=== PATIENT | male | born 1970 | race Caucasian/White ===

== ENCOUNTER 2020-11-24 18:26 | Emergency (ER) | payer OTHER ==
[~2020-11-24] VITALS: Ht 193 cm; Wt 99.8 kg
[2020-11-24 18:35] VITALS: BP_SYST 165
--- NOTE | 2020-11-24 18:58 | NUR ---
Placed in bed by Ramonita Rapp
--- NOTE | 2020-11-24 19:05 | NUR ---
pt. lacerated right index finger working on his car, denies pain, EMT irrigating cut at this time, Report to Miki
--- NOTE | 2020-11-24 19:15 | NUR ---
Dr. Rome at bedside for pt eval
[2020-11-24] MEDS ORDERED: LIDOCAINE 2%, 20 ML MDV INJ ONE (20:15)
[2020-11-24] MEDS ORDERED: DIPH-TET-PERTUS Vaccine 0.5 ML VIAL (ADACEL) I.M. ONE (20:15)
--- NOTE | 2020-11-24 20:40 | NUR ---
Patient fainted while sitting in gurney. Patient placed on monitor, in trendelenburg position, and IV started. Patients blood sugar taken and was 82. notified.
--- NOTE | 2020-11-24 20:50 | NUR ---
# 18 gauge angiocath placed to left AC. Use of asceptic technique. Opsite placed over site. Blood return noted. Flushed with 10 cc of normal saline. No evidence of infiltration noted. Patient tolerated well.
[2020-11-24] MEDS ORDERED: NACL 0.9% 1,000 ML IV ONE ×2 (21:00)
--- NOTE | 2020-11-24 21:05 | NUR ---
Dr. Rome ordered 12 lead EKG stat
--- NOTE | 2020-11-24 21:15 | NUR ---
Pt's VSS no s/s of acute distress Resting on gurney
--- NOTE | 2020-11-24 21:59 | NUR ---
Dr. Rome bedside for Lac repair procedure, well tolerated
[2020-11-24] MEDS ORDERED: SULF1TAB48 PO (22:08)
[2020-11-24 22:47] LABS: BASOPHILS % (AUTO) 0.1 % (0.0-2.0); EOSINOPHILS # (AUTO) 0.1 K/uL (0.0-0.4); EOSINOPHILS % (AUTO) 0.9 % (0.0-4.0); HEMATOCRIT 39.2 % (36-54); HEMOGLOBIN 13.6 g/dL (14.0-18.0); LYMPHOCYTES # (AUTO) 1.1 K/uL (1.0-5.5); LYMPHOCYTES % (AUTO) 18.7 % (20.5-51.5); MEAN CORPUSCULAR HEMOGLOBIN 30 pg (27-31); MEAN CORPUSCULAR HGB CONC 35 % (32-36); MEAN CORPUSCULAR VOLUME 87 fL (79.0-98.0); MONOCYTES # (AUTO) 0.4 K/uL (0.0-1.0); MONOCYTES % (AUTO) 6.1 % (1.7-9.3); NEUTROPHILS # (AUTO) 4.5 K/uL (1.8-7.7); NEUTROPHILS % (AUTO) 74.2 % (40.0-70.0); PLATELET COUNT (AUTO) 178 K/uL (130-430); RED CELL DISTRIBUTION WIDTH 13.2 % (9.0-15.0); WHITE BLOOD COUNT (AUTO) 6.1 K/uL (4.8-10.8)
[2020-11-24 23:01] LABS: CALCIUM 8.1 mg/dL (8.4-11.0); CREATININE 0.95 mg/dL (0.55-1.30); POTASSIUM 3.6 mmol/L (3.5-5.1)
[2020-11-24 23:06] LABS: ALBUMIN 3.4 g/dL (3.4-4.8); TOTAL BILIRUBIN 0.4 mg/dL (0.0-1.0)
--- NOTE | 2020-11-24 23:12 | NUR ---
Orthostatics WNL, Dr. Rome aware
[2020-11-24 23:28] VITALS: BP_SYST 126
--- NOTE | 2020-11-24 23:28 | NUR ---
Patient given written and verbal discharge instructions and verbalizes understanding. ER MD discussed with patient the results and treatment provided. Patient in stable condition. ID arm band removed. IV catheter removed intact and dressing applied, no active bleeding. Rx of Bactrim DS given. Patient educated on pain management and to follow up with PMD. Pain Scale 0/10 Opportunity for questions provided and answered. Medication side effect fact sheet provided.
[2020-11-24] MEDS ORDERED: SULFAMETHOXAZOLE/TRIMETHOPR DS 1 TABLET PO ONE (23:30)
== END 2020-11-24 23:28 | disposition home or self-care (01) ==
LOC: SED 18:26
DX: S61.210A Laceration without foreign body of right index finger without damage to nail, initial encounter (principal); I49.9 Cardiac arrhythmia, unspecified; W45.8XXA Other foreign body or object entering through skin, initial encounter; Y93.89 Activity, other specified; Y92.89 Other specified places as the place of occurrence of the external cause; Y99.8 Other external cause status
CPT/HCPCS: 12001; 36415; 71045; 73140; 80053; 82962; 84484; 85025; 87040; 90471; 90715; 93005; 96360; 99285; J2001; J7030

== ENCOUNTER 2021-11-06 06:13 | Observation (INO) | payer OTHER ==
[~2021-11-06] VITALS: Ht 193 cm; Wt 102.1 kg
[~2021-11-06 06:13] MED LIST: SULF1TAB48 PO
--- NOTE | 2021-11-06 06:13 | NUR ---
ER MD Barakat at bedside speaking with patient regarding contion.
--- NOTE | 2021-11-06 06:15 | NUR ---
Patient BIB [facility] from home for c/o syncope at approx 0500. Patient denies ALOC/LOC at this time. Patient reports pain 0/10. Patient accompanied by at bedside. Patient states "I think my blood pressure must be margoth low cause I haven't been drinking alot of water lately. But I dont remember fainting my was the one who saw me." Nad noted at this time.
[2021-11-06 06:17] VITALS: BP_SYST 116
[2021-11-06] MEDS ORDERED: NACL 0.9% 1,000 ML IV ONE (06:30)
--- NOTE | 2021-11-06 06:30 | NUR ---
ER MD Barakat at bedside perfoming rectal exam; patient tolerated procedure well.
--- NOTE | 2021-11-06 06:40 | NUR ---
Patient taken to CT via gurney; accompanied by radiology.
--- NOTE | 2021-11-06 06:52 | NUR ---
Patient back from radiology at this time.
--- NOTE | 2021-11-06 06:55 | NUR ---
Hemoccult stool sample taken to lab at this time.
--- NOTE | 2021-11-06 07:19 | NUR ---
Report given to MOHIT Rivera to assume care of patient at this time.
--- NOTE | 2021-11-06 07:20 | NUR ---
Assumed care of pt. Received report from MOHIT Hoover. Will provide care as ordered.
[2021-11-06 08:27] LABS: BASOPHILS % (AUTO) 0.3 % (0.0-2.0); EOSINOPHILS # (AUTO) 0.1 K/uL (0.0-0.4); EOSINOPHILS % (AUTO) 1.5 % (0.0-4.0); HEMATOCRIT 41.5 % (36-54); LYMPHOCYTES % (AUTO) 20.1 % (20.5-51.5); MEAN CORPUSCULAR VOLUME 86 fL (79.0-98.0); MONOCYTES # (AUTO) 0.3 K/uL (0.0-1.0); MONOCYTES % (AUTO) 6.4 % (1.7-9.3); NEUTROPHILS # (AUTO) 3.5 K/uL (1.8-7.7); NEUTROPHILS % (AUTO) 71.7 % (40.0-70.0); PLATELET COUNT (AUTO) 204 K/uL (130-430); RED BLOOD CELL COUNT(AUTO) 4.81 MIL/uL (4.2-6.2); RED CELL DISTRIBUTION WIDTH 12.8 % (9.0-15.0); WHITE BLOOD COUNT (AUTO) 4.9 K/uL (4.8-10.8)
[2021-11-06 08:58] LABS: ANION GAP 5 (5-15); CALCIUM 8.5 mg/dL (8.4-11.0); CHLORIDE 110 mmol/L (98-107); GLUCOSE 99 mg/dL (70-99); POTASSIUM 3.9 mmol/L (3.5-5.1); SODIUM SERUM 144 mmol/L (136-145); UREA NITROGEN, BLOOD 18 mg/dL (8-21)
[2021-11-06 08:59] LABS: GFR AFRICAN AMERICAN 92 mL/min (>90)
[2021-11-06 09:24] LABS: ALANINE AMINOTRANSFERASE 16 U/L (12-78); ASPARTATE AMINOTRANSFERASE 15 U/L (10-37); TOTAL BILIRUBIN 0.5 mg/dL (0.0-1.0)
--- NOTE | 2021-11-06 10:05 | NUR ---
Orthostatic vital signs done. Pt tolerated well.
--- NOTE | 2021-11-06 12:06 | NUR ---
Pt is lying on gurney with eyes closed. No signs of acute distress noted at this time.
[2021-11-06] MEDS: LEVOTHYROXINE SODIUM 0.1 MG TABLET PO SCH ×2 (13:28→13:30)
--- NOTE | 2021-11-06 15:22 | NUR ---
Admit bed requested Patient will be admitted to care of . Admitted to TELE unit. Diagnosis [facility] Inpatient (Yes or No) N Observation (Yes or No) Y Orientation concerns or request close to nursing station (Yes or No) N Covid Status NEG On vent or bipap N Isolation requirements N Needs a sitter N From Home (Yes or if No enter name of facility) H Requires Dialysis (Yes or No) N Med Rec Completed (Yes of No) PENDING
--- NOTE | 2021-11-06 15:31 | NUR ---
COVID SAMPLE OBTAINED AND SENT TO LAB.
--- NOTE | 2021-11-06 20:00 | NUR ---
Admission Note Received patient from ER with diagnosis of [facility]. Initial Plan of Care discussed-patient verbalized understanding. Family at bedside. Oriented to room, call light, pain management and safety.
--- NOTE | 2021-11-06 20:12 | NUR ---
RN GAVE REPORT TO ASHLYN RUEDA FOR CONTINUITY OF CARE
[2021-11-06 22:09] VITALS: BP_SYST 125
[2021-11-07] VITALS (7 sets, daily range): BP systolic 117–131
[2021-11-07] MEDS: LEVOTHYROXINE SODIUM 0.1 MG TABLET PO SCH (06:48)
--- NOTE | 2021-11-07 07:29 | NUR ---
CLOSING NOTES Patient resting in bed - no s/s pain or distress noted. Respirations even and unlabored - head of bed elevated. IV site patent - no s/s redness, infection, or infiltration. Bed locked and in lowest position. Call light within reach.
[2021-11-07 08:02] LABS: BASOPHILS % (AUTO) 0.2 % (0.0-2.0); EOSINOPHILS # (AUTO) 0.1 K/uL (0.0-0.4); EOSINOPHILS % (AUTO) 2.6 % (0.0-4.0); HEMATOCRIT 41.3 % (36-54); LYMPHOCYTES # (AUTO) 1.1 K/uL (1.0-5.5); LYMPHOCYTES % (AUTO) 23.9 % (20.5-51.5); MEAN CORPUSCULAR VOLUME 86 fL (79.0-98.0); MONOCYTES # (AUTO) 0.2 K/uL (0.0-1.0); MONOCYTES % (AUTO) 5.1 % (1.7-9.3); NEUTROPHILS # (AUTO) 3.1 K/uL (1.8-7.7); NEUTROPHILS % (AUTO) 68.2 % (40.0-70.0); PLATELET COUNT (AUTO) 202 K/uL (130-430); RED BLOOD CELL COUNT(AUTO) 4.79 MIL/uL (4.2-6.2); RED CELL DISTRIBUTION WIDTH 12.8 % (9.0-15.0); WHITE BLOOD COUNT (AUTO) 4.5 K/uL (4.8-10.8)
[2021-11-07 08:34] LABS: CALCIUM 8.8 mg/dL (8.4-11.0); CREATININE 0.97 mg/dL (0.55-1.30); POTASSIUM 4.2 mmol/L (3.5-5.1)
[2021-11-07 08:47] LABS: ALBUMIN 3.2 g/dL (3.4-4.8); THYROID STIMULATING HORMONE 0.18 uIu/mL (0.36-3.74); TOTAL BILIRUBIN 0.6 mg/dL (0.0-1.0)
--- NOTE | 2021-11-07 10:43 | NUR ---
CONSULTATION PAGED REASON FOR CONSULTATION:[facility] WAS CONSULT CALLED?Y PERSON WHO WAS NOTIFIED:TEXT MESSAGED ANN TARANGO CONSULTING PHYSICIAN:YANIQUE TARANGO SULFUR CHLORIDE OPERATOR SPECIALTY:NEURO SULFUR CHLORIDE OPERATOR PHONE NUMBER:[phone] REQUESTING PHYSICIAN:VALERIE JASSO
[2021-11-07] MEDS ORDERED: LEVO100T9 PO (15:41)
--- NOTE | 2021-11-07 19:45 | NUR ---
Dr PELAYO came to see pt, cleared for discharge
[2021-11-08] MEDS ORDERED: LEVOTHYROXINE SODIUM 0.1 MG TABLET PO SCH (07:00)
== END 2021-11-07 21:25 | disposition home or self-care (01) ==
LOC: SED 06:13 → SMU 13:06 → STU 13:07
PROVIDERS: ADMIT Internal Medicine; ATTEND Internal Medicine
DX: R55 Syncope and collapse (principal); Z20.822 Contact with and (suspected) exposure to COVID-19; E03.9 Hypothyroidism, unspecified; R41.82 Altered mental status, unspecified; I10 Essential (primary) hypertension; Z98.84 Bariatric surgery status; Z79.890 Hormone replacement therapy; Z79.899 Other long term (current) drug therapy
CPT/HCPCS: 96360; 80053 ×2; 85025 ×2; 86886; 86900; 86901; 84484; 36415 ×2; 93005 ×2; 70450; 76376; 99285; 82272; 87426; 80061; 83880; 84443; 93306; 71045; G0378 ×2

== ENCOUNTER 2022-09-28 02:26 | Emergency (ER) | payer OTHER ==
[~2022-09-28] VITALS: Ht 193 cm; Wt 99.8 kg
[~2022-09-28 02:26] MED LIST changes: +LEVO100T9 PO; -SULF1TAB48 PO
[2022-09-28 02:38] VITALS: BP_SYST 126; PULSE 94; RESP 18; TEMP 97.8; O2SAT 95
[2022-09-28] MEDS ORDERED: NACL 0.9% 1,000 ML IV ONE (02:45)
[2022-09-28] MEDS ORDERED: HYDROcodone/ACETAMIN 5-325 MG TAB (NORCO/ VICODIN) PO ONE (02:45)
--- NOTE | 2022-09-28 02:53 | NUR ---
Patient to ER bed 8 to gown for evaluation. Side rails up. Report given to CYNTHIA ORDAZ.
[2022-09-28] MEDS ORDERED: ONDANSETRON HCL 4 MG/2 ML VIAL IVP ONE (03:00)
[2022-09-28 03:05] LABS: BASOPHILS % (AUTO) 0.3 % (0.0-2.0); EOSINOPHILS % (AUTO) 0.1 % (0.0-4.0); HEMATOCRIT 41.7 % (36-54); HEMOGLOBIN 14.2 g/dL (14.0-18.0); LYMPHOCYTES # (AUTO) 0.6 K/uL (1.0-5.5); LYMPHOCYTES % (AUTO) 8.3 % (20.5-51.5); MEAN CORPUSCULAR HEMOGLOBIN 30 pg (27-31); MEAN CORPUSCULAR HGB CONC 34 % (32-36); MEAN CORPUSCULAR VOLUME 87 fL (79.0-98.0); MONOCYTES # (AUTO) 0.5 K/uL (0.0-1.0); MONOCYTES % (AUTO) 7.5 % (1.7-9.3); NEUTROPHILS # (AUTO) 5.9 K/uL (1.8-7.7); NEUTROPHILS % (AUTO) 83.8 % (40.0-70.0); PLATELET COUNT (AUTO) 175 K/uL (130-430); RED BLOOD CELL COUNT(AUTO) 4.77 MIL/uL (4.2-6.2)
--- NOTE | 2022-09-28 03:12 | NUR ---
Pt BIB ambulance from home. C/O syncope. Pt states to not recall what happen but according to pt fell and hit head and cheek on restroom door. Pt states no headache, slight ache to cheek related to fall. Pt states pain 6/10. Pt states to have covid following a positive at home test onset of 2 days ago. S/S fever, chills, body aches, persistant cough. RR even and unlabored. Pt states has hx of syncope episodes last one happening in 2021. Pt AAOX4. VSS. Afebrile. Skin dry and intact. No noted trauma to head or cheek related to fall. Pt speaking full complete sentences. Pt in bed with side rails up. Contact precautions in place.
[2022-09-28 03:41] LABS: ALANINE AMINOTRANSFERASE 16 U/L (12-78); ALBUMIN 3.7 g/dL (3.4-4.8); ANION GAP 13 (5-15); ASPARTATE AMINOTRANSFERASE 24 U/L (10-37); CALCIUM 8.4 mg/dL (8.4-11.0); CHLORIDE 104 mmol/L (98-107); CREATININE 0.91 mg/dL (0.55-1.30); GFR AFRICAN AMERICAN 113 mL/min (>90); GLUCOSE 117 mg/dL (74-106); TOTAL BILIRUBIN 0.7 mg/dL (0.0-1.0); UREA NITROGEN, BLOOD 10 mg/dL (8-21)
--- NOTE | 2022-09-28 03:43 | NUR ---
Patient transported to radiology via gurney, accompanied by shankar.
[2022-09-28 03:50] LABS: PHOSPHORUS 3.6 mg/dL (2.7-4.5); THYROID STIMULATING HORMONE 0.33 uIu/mL (0.36-3.74)
--- NOTE | 2022-09-28 05:06 | NUR ---
pt observed resting with eyes closed. pt in bed with side rails up. vss.
[2022-09-28] MEDS ORDERED: ONDA-8 TL (05:13)
[2022-09-28] MEDS ORDERED: BENZ100C92 PO (05:13)
[2022-09-28] MEDS ORDERED: ACET-2634 PO (05:13)
[2022-09-28 06:10] VITALS: BP_SYST 145; PULSE 70; RESP 17; TEMP 99.1; O2SAT 92
--- NOTE | 2022-09-28 06:10 | NUR ---
Patient given written and verbal discharge instructions and verbalizes understanding. ER MD discussed with patient the results and treatment provided. Patient in stable condition. ID arm band removed. Rx of TYLENOL BENZONATATE ZOFRAN given. Patient educated on pain management and to follow up with PMD. Opportunity for questions provided and answered. Medication side effect fact sheet provided.
== END 2022-09-28 06:10 | disposition home or self-care (01) ==
LOC: SED 02:26
DX: U07.1 COVID-19 (principal); S09.90XA Unspecified injury of head, initial encounter; R55 Syncope and collapse; R51.9 Headache, unspecified; R11.0 Nausea; Z88.6 Allergy status to analgesic agent; Z79.899 Other long term (current) drug therapy; W19.XXXA Unspecified fall, initial encounter; Y93.89 Activity, other specified; Y92.89 Other specified places as the place of occurrence of the external cause; Y99.8 Other external cause status
CPT/HCPCS: 99285; 96374; 70450; 71045; 96361; 80053; 82962; 83880; 83735; 84100; 84443; 85025; 85379; 84484; 36415; 76376; J2405; J7030

== ENCOUNTER 2023-02-03 01:02 | Inpatient (IN) | payer OTHER ==
[~2023-02-03] VITALS: Ht 193 cm; Wt 111.6 kg
[~2023-02-03 01:02] MED LIST changes: +ACET-2634 PO; +BENZ100C92 PO; +ONDA-8 TL
[2023-02-03 01:09] VITALS: BP_SYST 156; PULSE 65; RESP 20; TEMP 98.7; O2SAT 100
[2023-02-03] MEDS ORDERED: MORPHINE 4 MG INJ. 4 MG/ML VIAL IVP ONE ×2 (01:12→04:15)
[2023-02-03] MEDS ORDERED: NITROGLYCERIN 1 INCH (GM) OINT. TP ONE (01:12)
[2023-02-03] MEDS ORDERED: ONDANSETRON HCL 4 MG/2 ML VIAL IVP ONE ×2 (01:30→04:15)
[2023-02-03 01:50] LABS: BASOPHILS # (AUTO) 0.2 K/uL (0.0-0.2); BASOPHILS % (AUTO) 1.8 % (0.0-2.0); EOSINOPHILS % (AUTO) 0.1 % (0.0-4.0); HEMATOCRIT 43.5 % (36-54); LYMPHOCYTES # (AUTO) 0.9 K/uL (1.0-5.5); LYMPHOCYTES % (AUTO) 9.3 % (20.5-51.5); MEAN CORPUSCULAR HEMOGLOBIN 30 pg (27-31); MEAN CORPUSCULAR HGB CONC 34 % (32-36); MEAN CORPUSCULAR VOLUME 86 fL (79.0-98.0); MONOCYTES # (AUTO) 0.6 K/uL (0.0-1.0); MONOCYTES % (AUTO) 5.9 % (1.7-9.3); NEUTROPHILS # (AUTO) 8.5 K/uL (1.8-7.7); NEUTROPHILS % (AUTO) 82.9 % (40.0-70.0); PLATELET COUNT (AUTO) 220 K/uL (130-430); RED BLOOD CELL COUNT(AUTO) 5.04 MIL/uL (4.2-6.2); RED CELL DISTRIBUTION WIDTH 13.2 % (9.0-15.0); WHITE BLOOD COUNT (AUTO) 10.2 K/uL (4.8-10.8)
[2023-02-03 02:17] LABS: ANION GAP 14 (5-15); CALCIUM 9.4 mg/dL (8.4-11.0); CARBON DIOXIDE 23 mmol/L (23-29); CHLORIDE 107 mmol/L (98-107); CREATININE 1.07 mg/dL (0.55-1.30); GFR AFRICAN AMERICAN 94 mL/min (>90); GLUCOSE 139 mg/dL (74-106); POTASSIUM 3.7 mmol/L (3.5-5.1); SODIUM SERUM 144 mmol/L (136-145); UREA NITROGEN, BLOOD 18 mg/dL (8-21)
[2023-02-03 02:24] LABS: ALANINE AMINOTRANSFERASE 200 U/L (12-78); ALBUMIN 4.2 g/dL (3.4-4.8); ASPARTATE AMINOTRANSFERASE 284 U/L (10-37); BILIRUBIN,DIRECT 0.8 mg/dL (0.0-0.3); TOTAL BILIRUBIN 1.2 mg/dL (0.0-1.0); TOTAL PROTEIN, SERUM 7.5 g/dL (6.4-8.3)
[2023-02-03 02:27] LABS: GFR NON AFRICAN-AMERICAN 77 mL/min (>90)
[2023-02-03 05:49] LABS: BILIRUBIN,URINE NEGATIVE (NEGATIVE); BLOOD, URINE NEGATIVE (NEGATIVE); CLARITY/URINE CLEAR (CLEAR); COLOR,URINE YELLOW (YELLOW); GLUCOSE,URINE NEGATIVE (NEGATIVE); KETONES,URINE TRACE (NEGATIVE); LEUKOCYTE ESTERASE ,URINE NEGATIVE (NEGATIVE); NITRITE, URINE NEGATIVE (NEGATIVE); PROTEIN URINE NEGATIVE (NEGATIVE)
[2023-02-03] MEDS ORDERED: D5/0.45 NS 1,000 ML IV ONE (07:00)
[2023-02-03 10:33] VITALS: BP_SYST 131; PULSE 55; RESP 18; TEMP 97; O2SAT 98
[2023-02-03 12:00] VITALS: BP_SYST 129; PULSE 57; RESP 16; TEMP 97.9; TEMP 98; O2SAT 99
[2023-02-03 12:39] VITALS: O2SAT 98
[2023-02-03] MEDS ORDERED: ONDANSETRON HCL 4 MG/2 ML VIAL IVP PRN (13:45)
[2023-02-03] MEDS ORDERED: LORazepam 2 MG/ML VIAL IVP PRN (13:45)
[2023-02-03] MEDS ORDERED: NALOXONE HCL 0.4 MG/ML AMP (NARCAN) IVP PRN (13:45)
[2023-02-03] MEDS ORDERED: MORPHINE 4 MG INJ. 4 MG/ML VIAL IVP PRN (13:45)
[2023-02-03 16:00] VITALS: BP_SYST 123; PULSE 58; RESP 18; TEMP 97.6; O2SAT 98
[2023-02-03] MEDS: MORPHINE 2 MG/ML INJ. SYRINGE IVP PRN (16:51)
[2023-02-03 20:00] VITALS: BP_SYST 124; PULSE 55; RESP 17; TEMP 97.9; O2SAT 98
[2023-02-03] MEDS: D5/0.45 NS 1,000 ML IV SCH (22:42)
[2023-02-04] VITALS (7 sets, daily range): BP systolic 116–130; PULSE 53–62; RESP 16–18; TEMP 97–98.6; O2SAT 97–100
[2023-02-04 05:30] LABS: BASOPHILS % (AUTO) 0.3 % (0.0-2.0); EOSINOPHILS # (AUTO) 0.1 K/uL (0.0-0.4); EOSINOPHILS % (AUTO) 2.2 % (0.0-4.0); HEMATOCRIT 39.6 % (36-54); HEMOGLOBIN 13.2 g/dL (14.0-18.0); LYMPHOCYTES # (AUTO) 1.1 K/uL (1.0-5.5); LYMPHOCYTES % (AUTO) 27.7 % (20.5-51.5); MEAN CORPUSCULAR HEMOGLOBIN 29 pg (27-31); MEAN CORPUSCULAR HGB CONC 33 % (32-36); MEAN CORPUSCULAR VOLUME 88 fL (79.0-98.0); MONOCYTES # (AUTO) 0.3 K/uL (0.0-1.0); MONOCYTES % (AUTO) 7.1 % (1.7-9.3); NEUTROPHILS # (AUTO) 2.5 K/uL (1.8-7.7); NEUTROPHILS % (AUTO) 62.7 % (40.0-70.0); PLATELET COUNT (AUTO) 186 K/uL (130-430); RED CELL DISTRIBUTION WIDTH 13.3 % (9.0-15.0)
[2023-02-04] MEDS: D5/0.45 NS 1,000 ML IV SCH ×2 (05:50→15:00)
[2023-02-04 06:37] LABS: ALBUMIN 3.2 g/dL (3.4-4.8); CALCIUM 8.4 mg/dL (8.4-11.0); CREATININE 0.89 mg/dL (0.55-1.30); POTASSIUM 3.6 mmol/L (3.5-5.1); TOTAL BILIRUBIN 0.7 mg/dL (0.0-1.0)
[2023-02-04] MEDS: MORPHINE 2 MG/ML INJ. SYRINGE IVP PRN (20:23)
[2023-02-05] VITALS (7 sets, daily range): BP systolic 119–150; PULSE 51–101; RESP 14–20; TEMP 97.2–98.4; O2SAT 94–98
[2023-02-05] MEDS: D5/0.45 NS 1,000 ML IV SCH ×3 (01:39→14:38)
[2023-02-05 04:10] LABS: BASOPHILS % (AUTO) 0.2 % (0.0-2.0); EOSINOPHILS # (AUTO) 0.1 K/uL (0.0-0.4); EOSINOPHILS % (AUTO) 2.5 % (0.0-4.0); HEMATOCRIT 39.1 % (36-54); HEMOGLOBIN 13.1 g/dL (14.0-18.0); LYMPHOCYTES # (AUTO) 1.2 K/uL (1.0-5.5); LYMPHOCYTES % (AUTO) 27.4 % (20.5-51.5); MEAN CORPUSCULAR HEMOGLOBIN 29 pg (27-31); MEAN CORPUSCULAR HGB CONC 34 % (32-36); MEAN CORPUSCULAR VOLUME 87 fL (79.0-98.0); MONOCYTES # (AUTO) 0.4 K/uL (0.0-1.0); MONOCYTES % (AUTO) 8.1 % (1.7-9.3); NEUTROPHILS # (AUTO) 2.8 K/uL (1.8-7.7); NEUTROPHILS % (AUTO) 61.8 % (40.0-70.0); PLATELET COUNT (AUTO) 183 K/uL (130-430); RED BLOOD CELL COUNT(AUTO) 4.49 MIL/uL (4.2-6.2); WHITE BLOOD COUNT (AUTO) 4.5 K/uL (4.8-10.8)
[2023-02-05 09:06] LABS: HEPATITIS A AB, IgM Negative (Negative); HEPATITIS B CORE AB, IgM Negative (Negative); HEPATITIS B SURFACE AG Negative (Negative); HEPATITIS C VIRUS AB Non Reactive (Non Reactive)
[2023-02-05] MEDS ORDERED: ROCURONIUM BROMIDE 10 MG/ML (ZEMURON) ONE (09:57)
[2023-02-05] MEDS ORDERED: fentaNYL CITRATE/PF 100 MCG/2 ML AMP ONE (09:57)
[2023-02-05] MEDS ORDERED: GLYCOPYRROLATE 0.2 MG/ML VIAL ONE (09:57)
[2023-02-05] MEDS ORDERED: PROPOFOL 200MG/ 20ML VIAL (DIPRIVAN) IV ONE (09:57)
[2023-02-05] MEDS ORDERED: SUCCINYLCHOLINE CHLORIDE 20 MG/ML(QUELICIN) ONE (09:57)
[2023-02-05] MEDS ORDERED: DEXAMETHASONE SOD PHOSPHATE 4 MG/ML VIAL ONE (09:57)
[2023-02-05] MEDS ORDERED: NEOSTIGMINE METHYLSULFATE 1 MG/ML, 10 ML VIAL ONE (09:57)
[2023-02-05] MEDS ORDERED: SEVOFLURANE 15 MIN GAS INH ONE (09:57)
[2023-02-05] MEDS ORDERED: ONDANSETRON HCL 4 MG/2 ML VIAL ONE ×2 (09:57→12:10)
[2023-02-05] MEDS ORDERED: NS 1000 ML IV.SOLN IV ONE (09:57)
[2023-02-05] MEDS ORDERED: WATER FOR IRRIGATION,STERILE 1,000 ML IRRIG.SOLN IR ONE (09:57)
[2023-02-05] MEDS ORDERED: MIDAZOLAM HCL/PF 2 MG/2 ML SYRINGE ONE (09:57)
[2023-02-05] MEDS ORDERED: BUPIVACAINE /PF 0.25% 30 ML VIAL INJ ONE (09:57)
[2023-02-05] MEDS ORDERED: NS IRRIG SOLN 1000 ML IR ONE (09:57)
[2023-02-05] MEDS ORDERED: NALOXONE HCL 0.4 MG/ML AMP (NARCAN) IVP PRN (10:45)
[2023-02-05] MEDS ORDERED: ONDANSETRON HCL 4 MG/2 ML VIAL IVP PRN (10:45)
[2023-02-05] MEDS ORDERED: METOCLOPRAMIDE HCL 10 MG/2 ML VIAL IVP PRN (10:45)
[2023-02-05] MEDS ORDERED: ACETAMINOPHEN I.V. 1000 MG 100 ML IV ONE ×2 (10:45→12:04)
[2023-02-05] MEDS ORDERED: HYDROmorphone 1 MG/ML INJ. CARTRIDGE ONE ×3 (12:08→13:28)
[2023-02-05] MEDS: HYDROmorphone 1 MG/ML INJ. CARTRIDGE IVP PRN ×3 (12:17→13:29)
[2023-02-05] MEDS: cefTRIAXone 1 GM in D5W 50 ML IV SCH (14:35)
[2023-02-05] MEDS: MORPHINE 2 MG/ML INJ. SYRINGE IVP PRN ×2 (15:33→23:01)
[2023-02-06] VITALS: BP_SYST 135; PULSE 71; RESP 18; TEMP 98.7; O2SAT 94
[2023-02-06 05:55] LABS: BASOPHILS % (AUTO) 0.1 % (0.0-2.0); HEMATOCRIT 33.7 % (36-54); HEMOGLOBIN 11.9 g/dL (14.0-18.0); LYMPHOCYTES # (AUTO) 0.7 K/uL (1.0-5.5); LYMPHOCYTES % (AUTO) 7.4 % (20.5-51.5); MEAN CORPUSCULAR HEMOGLOBIN 31 pg (27-31); MEAN CORPUSCULAR HGB CONC 35 % (32-36); MEAN CORPUSCULAR VOLUME 87 fL (79.0-98.0); MONOCYTES # (AUTO) 0.5 K/uL (0.0-1.0); MONOCYTES % (AUTO) 5.5 % (1.7-9.3); NEUTROPHILS # (AUTO) 8.4 K/uL (1.8-7.7); PLATELET COUNT (AUTO) 243 K/uL (130-430); RED BLOOD CELL COUNT(AUTO) 3.87 MIL/uL (4.2-6.2); RED CELL DISTRIBUTION WIDTH 12.9 % (9.0-15.0); WHITE BLOOD COUNT (AUTO) 9.7 K/uL (4.8-10.8)
[2023-02-06] MEDS: MORPHINE 2 MG/ML INJ. SYRINGE IVP PRN ×2 (06:36→12:30)
[2023-02-06 06:39] LABS: ALBUMIN 3.1 g/dL (3.4-4.8); CALCIUM 8.7 mg/dL (8.4-11.0); CREATININE 0.84 mg/dL (0.55-1.30); POTASSIUM 3.7 mmol/L (3.5-5.1); TOTAL BILIRUBIN 0.6 mg/dL (0.0-1.0)
[2023-02-06 06:40] LABS: PROTHROMBIN TIME 10.4 SECS (9.5-12.5)
[2023-02-06] MEDS: D5/0.45 NS 1,000 ML IV SCH (06:40)
[2023-02-06 08:00] VITALS: BP_SYST 153; PULSE 75; RESP 17; TEMP 98.4; O2SAT 96
[2023-02-06 12:00] VITALS: BP_SYST 136; PULSE 72; RESP 18; TEMP 98; O2SAT 96
[2023-02-06] MEDS: cefTRIAXone 1 GM in D5W 50 ML IV SCH (14:24)
[2023-02-06 16:00] VITALS: BP_SYST 137; PULSE 92; RESP 18; TEMP 98.4; O2SAT 96
[2023-02-06 16:35] LABS: BASOPHILS % (AUTO) 0.1 % (0.0-2.0); EOSINOPHILS % (AUTO) 0.1 % (0.0-4.0); HEMATOCRIT 33.3 % (36-54); HEMOGLOBIN 11.6 g/dL (14.0-18.0); LYMPHOCYTES # (AUTO) 1.4 K/uL (1.0-5.5); LYMPHOCYTES % (AUTO) 13.3 % (20.5-51.5); MEAN CORPUSCULAR HEMOGLOBIN 30 pg (27-31); MEAN CORPUSCULAR HGB CONC 35 % (32-36); MEAN CORPUSCULAR VOLUME 87 fL (79.0-98.0); MONOCYTES # (AUTO) 0.8 K/uL (0.0-1.0); MONOCYTES % (AUTO) 7.2 % (1.7-9.3); NEUTROPHILS # (AUTO) 8.4 K/uL (1.8-7.7); NEUTROPHILS % (AUTO) 79.3 % (40.0-70.0); PLATELET COUNT (AUTO) 255 K/uL (130-430); RED BLOOD CELL COUNT(AUTO) 3.85 MIL/uL (4.2-6.2); RED CELL DISTRIBUTION WIDTH 13.1 % (9.0-15.0); WHITE BLOOD COUNT (AUTO) 10.6 K/uL (4.8-10.8)
[2023-02-06 20:00] VITALS: O2SAT 95
[2023-02-06 20:15] VITALS: BP_SYST 136; PULSE 79; RESP 18; TEMP 99.6; O2SAT 96
[2023-02-07 00:01] VITALS: BP_SYST 146; PULSE 84; RESP 18; TEMP 99.2; O2SAT 96
[2023-02-07] MEDS: MORPHINE 2 MG/ML INJ. SYRINGE IVP PRN (00:19)
[2023-02-07 06:10] LABS: BASOPHILS % (AUTO) 0.1 % (0.0-2.0); EOSINOPHILS % (AUTO) 0.2 % (0.0-4.0); HEMATOCRIT 28.6 % (36-54); HEMOGLOBIN 9.9 g/dL (14.0-18.0); LYMPHOCYTES # (AUTO) 1.5 K/uL (1.0-5.5); LYMPHOCYTES % (AUTO) 19.5 % (20.5-51.5); MEAN CORPUSCULAR HEMOGLOBIN 30 pg (27-31); MEAN CORPUSCULAR HGB CONC 35 % (32-36); MEAN CORPUSCULAR VOLUME 87 fL (79.0-98.0); MONOCYTES # (AUTO) 0.6 K/uL (0.0-1.0); MONOCYTES % (AUTO) 7.9 % (1.7-9.3); NEUTROPHILS # (AUTO) 5.4 K/uL (1.8-7.7); NEUTROPHILS % (AUTO) 72.3 % (40.0-70.0); PLATELET COUNT (AUTO) 201 K/uL (130-430); WHITE BLOOD COUNT (AUTO) 7.4 K/uL (4.8-10.8)
[2023-02-07 08:18] VITALS: BP_SYST 121; PULSE 81; RESP 18; TEMP 98.6; O2SAT 96
[2023-02-07 09:20] VITALS: BP_SYST 133; PULSE 79; RESP 18; TEMP 98.5; O2SAT 97
[2023-02-07 10:00] VITALS: O2SAT 96
[2023-02-07 11:38] VITALS: BP_SYST 127; PULSE 85; RESP 18; TEMP 98; O2SAT 95
== END 2023-02-07 12:00 | disposition home or self-care (01) | DRG 418 ==
LOC: SED 01:02 → SMU 06:37 → STU 02-05 16:59 → SMU 02-06 23:19
PROVIDERS: ADMIT Specialist; ATTEND Specialist
PROC: 0DNU4ZZ Release Omentum, Percutaneous Endoscopic Approach (ICD-10-PCS; 2023-02-05)
PROC: 0FT44ZZ Resection of Gallbladder, Percutaneous Endoscopic Approach (ICD-10-PCS; principal; 2023-02-05 09:57)
DX: K80.00 Calculus of gallbladder with acute cholecystitis without obstruction (principal); B17.9 Acute viral hepatitis, unspecified; E03.9 Hypothyroidism, unspecified; R74.01 Elevation of levels of liver transaminase levels; R73.9 Hyperglycemia, unspecified; Z87.11 Personal history of peptic ulcer disease; Z88.6 Allergy status to analgesic agent
CPT/HCPCS: 36415; 71045; 74181; 76700-TC; 80048; 80053; 80074; 80076; 81001; 81003; 83690; 83880; 84484; 85025; 85379; 85610-TC; 85730-TC; 86886; 86900; 86901; 87040; 87081; 88304; 96374; 96375; 96376; 99285; C1727; G0378; J0131; J0330; J0696; J1100; J1170; J2270; J2405; J2704; J2710; J3010; J3465; J3490; J7030; J7060